=== PATIENT | male | born 1955 | race Hispanic/Latino ===

== ENCOUNTER 2016-12-21 06:41 | Day surgery (SDC) | payer OTHER ==
[2016-12-19 10:21] VITALS: BMI 34.1
[2016-12-21] MEDS ORDERED: Lidocaine 1% Inj (20ml) ONE (07:23)
[2016-12-21] MEDS ORDERED: ceFAZolin IV 1 gm in Dextrose 1 GM/50 ML BAG IVPB ONE (07:23)
[2016-12-21] MEDS ORDERED: Dexamethasone 4 mg/1 ml ONE (07:24)
[2016-12-21] MEDS ORDERED: Propofol 10 mg/ml Inj (20 ML) ONE (07:24)
[2016-12-21] MEDS ORDERED: Phenylephrine 10 mg/ml Inj ONE (07:24)
[2016-12-21] MEDS ORDERED: Lidocaine 2% w Epi 1:100,000 Inj IJ ONE (07:24)
[2016-12-21] MEDS ORDERED: Rocuronium 10 mg/ml (5 ml) ONE (07:24)
[2016-12-21] MEDS ORDERED: Succinylcholine 200 mg/10 ml Inj IV ONE (07:24)
[2016-12-21] MEDS ORDERED: Lidocaine 4% (Laryng-O-Jet) Kit MM ONE (07:24)
--- NOTE | 2016-12-21 07:28 | CP.SDSHP ---
Same Day Surgery H & P - History Proposed Procedure: Left knee arthroscopy, possible partial meniscectomy Pre-Op Diagnosis: Left knee medial and possible lateral meniscal tears - Previous Medical/Surgical History Cardiac: Hypertension Endocrine/Metabolic: Diabetes Previous Surgical History: cardiac stents - Allergies Allergies: Allergies Penicillins Allergy (Mild, Verified 11/19/16 13:09) RASH - Current Medications Current Medications: plavix discontinued 2 months ago aspirin held 5 days - Physical Exam Vital Signs: Vital Signs 12/21/16 12/21/16 07:09 07:12 Temperature 98.4 F Pulse Rate 85 85 Respiratory 20 Rate Blood Pressure 177/97 H O2 Sat by Pulse 98 Oximetry Mental Status: Alert & Oriented x3 Heart: WNL Lungs: WNL GI: WNL - {Optional Preform as Required} Ortho: Other (left knee: mild effusion, no erythema, skin intact, calves soft NT neg homans, j+Dp/PT pulses, sensation intact, ttp to med and lat joint lines) Other Pertinent Findings: MRI in system, reviewed - Impression Impression: 61M with left knee meniscal tears, LFC cartilage defect for arthroscopy. [employer] patient report reviewed, T#3 rx #14 11/29. Patient counseled on the risks of addiction, physical or psychological dependence, and overdose associated with opioid drugs and the danger of taking opioid drugs with alcohol and other central nervous system depressants, and cautioned patient on storage and disposal Pt. Evaluated Today:Candidate for Anesthesia & Procedure: Yes - Date & Time Date: 12/21/16 Time: 07:29 Short Stay Discharge - Short Stay Discharge Admitting Diagnosis/Reason for Visit: S83.204A Disposition: HOME/ ROUTINE Referrals: Nella Garcia MD [Primary Care Provider] - Past Patient History - Infectious Disease Hx of Infectious Diseases: None - Past Medical History & Family History Past Medical History?: Yes - Past Social History Smoking Status: Former Smoker - CARDIAC Hx Cardiac Disorders: Yes Hx Heart Attack: Yes (8 YRS AGO) Hx Hypertension: Yes - PULMONARY Hx Respiratory Disorders: No - NEUROLOGICAL Hx Neurological Disorder: No - HEENT Hx HEENT Problems: No - RENAL Hx Chronic Kidney Disease: Yes Hx Kidney Stones: Yes (LEFT) - ENDOCRINE/METABOLIC Hx Endocrine Disorders: Yes Hx Diabetes Mellitus Type 2: Yes - HEMATOLOGICAL/ONCOLOGICAL Hx Blood Disorders: No - INTEGUMENTARY Hx Dermatological Problems: No - MUSCULOSKELETAL/RHEUMATOLOGICAL Hx Musculoskeletal Disorders: No - GASTROINTESTINAL Hx Gastrointestinal Disorders: No - GENITOURINARY/GYNECOLOGICAL Hx Genitourinary Disorders: No - PSYCHIATRIC Hx Psychophysiologic Disorder: No - SURGICAL HISTORY Hx Surgeries: Yes Hx Angioplasty: Yes Hx Cardiac Catheterization: Yes Hx Tonsillectomy: Yes - ANESTHESIA Hx Anesthesia: Yes Hx Anesthesia Reactions: No Hx Malignant Hyperthermia: No Has any member of the family had a problem w/ anesthesia?: No
[2016-12-21] MEDS ORDERED: MethylPREDNISolone Depo 40 mg/ml Inj ONE (07:36)
[2016-12-21] MEDS ORDERED: Bupivacaine 0.5% Inj(30mL) ONE (07:36)
--- NOTE | 2016-12-21 07:38 | CP.SDSHP ---
Same Day Surgery H & P - Allergies Allergies: Allergies Penicillins Allergy (Mild, Verified 11/19/16 13:09) RASH - Physical Exam Vital Signs: Vital Signs 12/21/16 12/21/16 07:09 07:12 Temperature 98.4 F Pulse Rate 85 85 Respiratory 20 Rate Blood Pressure 177/97 H O2 Sat by Pulse 98 Oximetry Short Stay Discharge - Short Stay Discharge Admitting Diagnosis/Reason for Visit: S83.204A Disposition: HOME/ ROUTINE Referrals: Nella Garcia MD [Primary Care Provider] - Past Patient History - Infectious Disease Hx of Infectious Diseases: None - Past Medical History & Family History Past Medical History?: Yes - Past Social History Smoking Status: Former Smoker - CARDIAC Hx Cardiac Disorders: Yes Hx Heart Attack: Yes (8 YRS AGO) Hx Hypertension: Yes - PULMONARY Hx Respiratory Disorders: No - NEUROLOGICAL Hx Neurological Disorder: No - HEENT Hx HEENT Problems: No - RENAL Hx Chronic Kidney Disease: Yes Hx Kidney Stones: Yes (LEFT) - ENDOCRINE/METABOLIC Hx Endocrine Disorders: Yes Hx Diabetes Mellitus Type 2: Yes - HEMATOLOGICAL/ONCOLOGICAL Hx Blood Disorders: No - INTEGUMENTARY Hx Dermatological Problems: No - MUSCULOSKELETAL/RHEUMATOLOGICAL Hx Musculoskeletal Disorders: No - GASTROINTESTINAL Hx Gastrointestinal Disorders: No - GENITOURINARY/GYNECOLOGICAL Hx Genitourinary Disorders: No - PSYCHIATRIC Hx Psychophysiologic Disorder: No - SURGICAL HISTORY Hx Surgeries: Yes Hx Angioplasty: Yes Hx Cardiac Catheterization: Yes Hx Tonsillectomy: Yes - ANESTHESIA Hx Anesthesia: Yes Hx Anesthesia Reactions: No Hx Malignant Hyperthermia: No Has any member of the family had a problem w/ anesthesia?: No
[2016-12-21] MEDS ORDERED: Lactated Ringer's 1,000 ML IV ONE (08:05)
[2016-12-21] MEDS ORDERED: Midazolam 2 MG/2 ML VIAL ONE (08:06)
[2016-12-21] MEDS ORDERED: Desflurane Inhalation Anesthetic Liq (240 ml) ONE (08:34)
[2016-12-21] MEDS ORDERED: ePHEDrine 50 mg/ml Inj ONE (08:41)
[2016-12-21] MEDS ORDERED: Lidocaine 1% Inj (20ml) IJ ONE (08:58)
[2016-12-21] MEDS ORDERED: Morphine 1 mg/ml preservative-free Inj(Duramorph) ONE (09:18)
[2016-12-21] MEDS ORDERED: Neostigmine Methylsulfate 3mg/3ml Syringe IV ONE (09:20)
[2016-12-21] MEDS ORDERED: Neostigmine Methylsulfate 2 MG/2 ML ML IV ONE (09:20)
[2016-12-21] MEDS ORDERED: Oxycodone/Acetaminophen 5/325 mg Tab PO PRN (09:29)
[2016-12-21] MEDS ORDERED: Metoprolol 1 mg/ml Inj IVP ONE (09:30)
[2016-12-21] MEDS ORDERED: Bupivacaine 0.5% 50 ML IJ ONE (09:35)
[2016-12-21] MEDS ORDERED: MethylPREDNISolone Depo 40 mg/ml Inj IM ONE (09:35)
[2016-12-21] MEDS ORDERED: Morphine 1 mg/ml preservative-free Inj(Duramorph) IM ONE (09:35)
--- NOTE | 2016-12-21 09:36 | PCM.SURG1 ---
Surgeon's Initial Post Op Note - Surgeon's Notes Surgeon: Roberto Carlos Marks MD Nonprofit Financial Controller: Russ Hager PA-c Type of Anesthesia: General Endo Anesthesia Administered By: Dr. Roberto Pre-Operative Diagnosis: Left knee medial possible lateral meniscal tears Operative Findings: tourniquet: @350mmHg Post-Operative Diagnosis: same Operation Performed: 1. Left knee arthroscopy. 2. Arthroscopic partial medial and lateral meniscectomies. 3. intraarticular injection Specimen/Specimens Removed: none Blood Products Given: N/A Drains Used: No Drains Post-Op Condition: Fair
[2016-12-21] MEDS ORDERED: Lactated Ringer's 500 ML IV ONE (09:47)
[2016-12-21] MEDS ORDERED: HYDROmorphone 0.5 mg/0.5 ml ISec IVP PRN (09:56)
[2016-12-21] MEDS ORDERED: Lactated Ringer's 1,000 ML IV SCH (10:00)
[2016-12-21 10:23] VITALS: RESP 20
[2016-12-21 11:07] VITALS: TEMP 97.5
[2016-12-21 12:09] VITALS: BP 160/90; PULSE 82; O2SAT 97
--- NOTE | 2016-12-22 13:11 | OP ---
PROCEDURE DATE: 12/21/2016 PREOPERATIVE DIAGNOSES: Internal derangement of the left knee, osteoarthritis of the left knee. POSTOPERATIVE DIAGNOSES: Tricompartmental synovitis, complex tear medial meniscus, tear lateral meniscus. PROCEDURES: 1. Surgical arthroscopy, partial tricompartmental synovectomy. 2. Surgical arthroscopy, partial medial and lateral meniscectomy. 3. Surgical arthroscopy. 4. Intra-articular injection. SURGEON: Db Marks MD. CORPORATE REPRESENTATIVE: April Oden PA-C. TYPE OF ANESTHESIA: General endotracheal anesthesia. ANESTHESIA ADMINISTERED BY: Basilio Roberto MD. COMPLICATIONS: None. DRAINS: None. OPERATIVE INDICATIONS: Anastacio Dorantes is a 61-year-old gentleman who is employed by [employer], who presents with severe pain and restricted range of motion of the left knee. The patient has failed conservative management consisting of anti-inflammatory medication, activity modification. 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 Possibility of later arthroplasty at some point was discussed down the line. Pros, cons, risks, and benefits of arthroscopic surgery of the left knee are discussed. Possibility of stiffness, mechanical failure, infection, thromboembolic disease discussed. OPERATIVE PROCEDURE: After having obtained informed consent, after thoroughly discussing the pros, cons, risks and benefits of the surgical approach, the possibility of mechanical failure, infection, thromboembolic disease, secondary or tertiary surgery is discussed. Possibility of knee stiffness is discussed. The patient can no longer withstand the discomfort. After having obtained informed consent, after having identified side, site and procedure and critical pause/time-out, after the satisfactory induction of the anesthetic, the left lower extremity is prepped and free draped in usual fashion for lower extremity surgery. The tourniquet had been applied, but it is not yet inflated. The knee ramires had been employed. After sterilely prepping and draping, after exsanguinating the limb using a 6-inch Esmarch bandage, the tourniquet, which had been applied, is inflated to 350 mmHg. The joint is insufflated with 10 mL of 1% lidocaine without epinephrine. Using #11 blade, followed by spreading, followed by introduction of the trocar, the arthroscope is introduced. Examination of the joint commenced. There was found to be a rather irritative and inflammatory synovitis. At a point anteromedially, triangulation is accomplished using #18 gauge spinal needle, followed by #11 blade, followed by spreading, followed by introduction of the blunt trocar. With the arthroscope anterolaterally and with the surgeon exerting a gentle valgus stress so as not to injure the medial collateral ligament, a careful partial tricompartmental synovectomy is accomplished, both to improve visualization and to ablate irritative tissue. With the arthroscope anterolaterally, a careful partial tricompartmental synovectomy is completed. Bleeding points controlled with the arthroscopic wand. This having been accomplished, please refer to the video photographs, there was found to be a complex tear of the medial meniscus with infolding of the meniscus underneath. This having been accomplished, triangulation is accomplished from an anterocentral portal using #18 gauge spinal needle, followed by #11 blade, followed by spreading. With the arthroscope anterolaterally, with the surgeon exerting a general valgus stress, careful partial tricompartmental synovectomy is completed. With the arthroscope anterolaterally, with the grasper placed anterocentrally, using a combination of the arthroscopic scissor and the arthroscopic shaver, the posterior meniscal fragment medially is removed. It is a rather large fragment. With the arthroscope anterolaterally, with surgeon exerting a general valgus stress using a combination of the arthroscopic shaver, partial medial meniscectomy is completed. The arthroscope was transferred anteromedially. Using the left biting basket punch and the upbiting basket punch, a partial medial meniscectomy is completed. The inner free edge is smoothed using the ArthroCare wand. This having been accomplished, partial medial meniscectomy is accomplished. The inner free edge is smoothed using the ArthroCare wand. Careful partial tricompartmental synovectomy is completed using the arthroscopic shaver and the arthroscopic wand. With the knee in figure 4 position, the inner aspect of the lateral meniscus is identified using a combination of the straight biting basket forceps and the side biting basket forceps. A partial lateral meniscectomy is accomplished using a combination of the straight biting basket forceps and the side biting basket forceps. With the arthroscope anterolaterally, again using a combination of the straight biting basket and side biting basket forceps, a partial lateral meniscectomy is accomplished. The inner free edge is smoothed using the AudioCompass SERFAS wand. With the arthroscope anterolaterally, the inner free edge of the lateral meniscus is smoothed using again the Abdias SERFAS wand. Partial tricompartmental synovectomy is completed. Anterior cruciate ligament is found to be intact. There is evidence of some chondral damage and arthritic change, which is carefully debrided. The wound is thoroughly irrigated. Portals were closed with interrupted Vicryl and nylon. Intra-articular injection is offered. Franklin Sethi compression dressing and knee immobilizer is applied. Db Marks MD
== END 2016-12-21 12:25 | disposition home or self-care (01) ==
LOC: H.OPSURG 06:41
PROVIDERS: ATTEND Orthopaedic Surgery
DX: M23.8X2 Other internal derangements of left knee (principal); G47.33 Obstructive sleep apnea (adult) (pediatric); I25.10 Atherosclerotic heart disease of native coronary artery without angina pectoris; E11.9 Type 2 diabetes mellitus without complications; I10 Essential (primary) hypertension; M19.90 Unspecified osteoarthritis, unspecified site
CPT/HCPCS: 20610; 29876; 29880; 82948; 88305; 97161; G8978; G8979; G8980; J0171; J0330; J0690; J1030; J1100; J1885; J2001; J2250; J2270; J2370; J2405; J2704; J2710; J2765; J3010; J7030; J7120

== ENCOUNTER 2018-03-21 13:40 | Emergency (ER) | payer OTHER ==
[2018-03-21 13:41] VITALS: BMI 34.1
[2018-03-21 13:49] VITALS: BP 145/77; PULSE 68; RESP 20; TEMP 98.2; O2SAT 98
[2018-03-21 14:08] LABS: BASO # 0.1 K/uL (0.0-0.2); BASO % 1.2 % (0.0-2.0); EOS # 0.1 K/uL (0.0-0.7); EOS % 1.6 % (0.0-4.0); HEMOGLOBIN 14.3 g/dL (12.0-18.0); LYMPH # 1.6 K/uL (1.0-4.3); LYMPH % 25.5 % (20.0-40.0); MEAN CELL VOLUME 90.4 fl (80.0-94.0); MEAN CORPUSCULAR HEMOGLOBIN 29.9 pg (27.0-31.0); MEAN CORPUSCULAR HGB CONC 33.1 g/dL (33.0-37.0); MONO # 0.9 K/uL (0.0-0.8); MONO % 15.1 % (0.0-10.0); NEUT # 3.5 K/uL (1.8-7.0); NEUT % 56.6 % (50.0-75.0); NRBC % 0.2 % (0.0-0.0); RBC 4.77 Mil/uL (4.40-5.90); WHITE BLOOD COUNT 6.2 K/uL (4.8-10.8)
[2018-03-21 14:18] LABS: BLOOD UREA NITROGEN 19 mg/dl (9-20); CALCIUM 9.7 mg/dL (8.4-10.2); GFR NON-AFRICAN AMERICAN > 60
[2018-03-21] MEDS ORDERED: Albuterol-Ipratrop 3 mg / 0.5 (3 ml) UD INH STA (14:18)
[2018-03-21] MEDS ORDERED: Albuterol-Ipratrop 3 mg / 0.5 (3 ml) UD ONE (14:35)
--- NOTE | 2018-03-21 14:51 | ED PDOC ---
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 Patient works in multiple hospitals and aside from at work doesn't know if he has had any flu contact. Patient was evaluated by another doctor who recommended him to come to this ED or a chest x-ray. Patient denies chest pain, nausea, vomiting, diarrhea. Past Medical History Reviewed: Historical Data, Nursing Documentation, Vital Signs Vital Signs: Last Vital Signs Temp 98.2 F 03/21/18 13:44 Pulse 68 03/21/18 13:44 Resp 20 03/21/18 13:44 BP 145/77 03/21/18 13:44 Pulse Ox 98 03/21/18 13:44 - Medical History PMH: Arthritis, Diabetes, HTN, Hypercholesterolemia, Kidney Stones, Chronic Kidney Disease - Surgical History Surgical History: Coronary Stent, Tonsillectomy Denies: Pacemaker - Family History Family History: States: Unknown Family Hx - Home Medications Home Medications: Ambulatory Orders Medication Instructions Recorded Aspirin [Aspir 81] 81 mg PO DAILY 08/04/11 Clopidogrel [Plavix] 75 mg PO DAILY 08/04/11 Fenofibrate [Tricor] 145 mg PO DAILY 08/04/11 Metoprolol Tartrate [Lopressor] 12.5 mg PO BID 08/04/11 Rosuvastatin Calcium [Crestor] 20 mg PO DAILY 08/04/11 Cholecalciferol (Vitamin D3) 2,000 unit PO DAILY 11/17/16 [Vitamin D3] Glyburide/Metformin HCl 1 tab PO BID 11/17/16 [Glyburide-Metformin 2.5-500 mg] Olmesartan Medoxomil [Benicar] 20 mg PO DAILY 11/17/16 Ketorolac Tromethamine [Toradol] 10 mg PO Q6 PRN #14 tab 11/19/16 MetFORMIN [glucoPHAGE] 500 mg PO TID 11/19/16 Tamsulosin [Flomax] 0.4 mg PO DAILY #4 cap 11/19/16 oxyCODONE/Acetaminophen [Percocet 1 ea PO Q4H PRN #30 tab 12/21/16 5/325 mg Tab] Albuterol HFA [Ventolin HFA 90 2 puff IH [id number] #1 pump 03/21/18 mcg/actuation (8 g)] Oseltamivir Phosphate [Tamiflu] 75 mg PO BID #9 capsule 03/21/18 - Allergies Allergies/Adverse Reactions: Allergies Allergy/AdvReac Type Severity Reaction Status Date / Time Penicillins Allergy Mild RASH Verified 03/21/18 13:43 Review of Systems ROS Statement: Except As Marked, All Systems Reviewed And Found Negative Constitutional: Positive for: Weakness Cardiovascular: Negative for: Chest Pain Respiratory: Positive for: Cough Gastrointestinal: Negative for: Nausea, Vomiting, Diarrhea Physical Exam - Reviewed Nursing Documentation Reviewed: Yes Vital Signs Reviewed: Yes - Physical Exam Appears: Positive for: Well, Non-toxic, No Acute Distress Head Exam: Positive for: ATRAUMATIC, NORMOCEPHALIC Skin: Positive for: Normal Color, Warm, Dry Eye Exam: Positive for: EOMI, Normal appearance, PERRL Neck: Positive for: Normal, Painless ROM Cardiovascular/Chest: Positive for: Regular Rate, Rhythm. Negative for: Murmur Respiratory: Positive for: Crackles, Wheezing (right sided). Negative for: Rhonchi, Stridor Gastrointestinal/Abdominal: Positive for: Normal Exam, Soft. Negative for: Tenderness Back: Positive for: Normal Inspection Extremity: Positive for: Normal ROM. Negative for: Pedal Edema, Deformity Neurologic/Psych: Positive for: Alert, Oriented. Negative for: Motor/Sensory Deficits Medical Decision Making Medical Decision Making: Time: 13:46 Initial Impression: Workup fo influenza vs. other URI. Duonebs for symptomatic relief. Reassess patient Initial Plan: * BMP * CBC w/ diff * CXR * Duoneb 3 ml * Influenza A B 14:46 Patient is flu positive. Tamiflu given. Labs are otherwise within normal limits. Received duonebs now. Most likely will discharge home. 15:10 Patient with improvement of symptoms, tolerated Tamiflu. Patient is medically stable for discharge home with prescription for Albuterol and Tamiflu. Note given and return parameters discussed. Scribe Attestation: Documented by Deep Monroy acting as a scribe for Dinorah Porter MD. Provider Scribe Attestation: All medical record entries made by the Scribe were at my direction and personally dictated by me. I have reviewed the chart and agree that the record accurately reflects my personal performance of the history, physical exam, medical decision making, and the department course for this patient. I have also personally directed, reviewed, and agree with the discharge instructions and disposition. - Laboratory Results Result Diagrams: 03/21/18 12:02 03/21/18 12:02 - ECG O2 Sat by Pulse Oximetry: 98 Disposition - Clinical Impression Clinical Impression: Influenza A - Disposition Disposition: Routine/Home Disposition Time: 15:10 Condition: STABLE Additional Instructions: Take Tamiflu twice per day for a total of 5 days. Follow up with primary doctor in one week. Stay home for rest for an additional 24 hours after symptoms resolve. Return to the emergency department if symptoms worsen or if you develop weakness, chest pain, difficulty breathing or other new symptoms. Prescriptions: Albuterol HFA [Ventolin HFA 90 mcg/actuation (8 g)] 2 puff IH [id number] #1 pump Oseltamivir Phosphate [Tamiflu] 75 mg PO BID #9 capsule Instructions: Flu, Adult (DC) Forms: [employer] (Paraguayan), [facility] ED School/Work Excuse Print Language: DANISH
--- NOTE | 2018-03-21 15:23 | RAD ---
Date of service: 03/21/2018 HISTORY: cough COMPARISON: Chest radiograph dated 12/19/2016. TECHNIQUE: Chest PA and lateral FINDINGS: LUNGS: No active pulmonary disease. PLEURA: No significant pleural effusion identified. No pneumothorax apparent. CARDIOVASCULAR: Aortic atherosclerotic calcifications. Cardiomediastinal silhouette within normal limits. OSSEOUS STRUCTURES: Unchanged. VISUALIZED UPPER ABDOMEN: Normal. OTHER FINDINGS: Neck region surgical clips redemonstrated.. IMPRESSION: No active disease.
--- NOTE | 2018-03-27 13:40 | CARD ---
APPROVED REPORT Date of service: 03/21/2018 EKG Measurement Heart [id number] <Conclusion> Sinus bradycardia Otherwise normal ECG
== END 2018-03-21 15:27 | disposition home or self-care (01) ==
LOC: H.ER 13:40
DX: J09.X2 Influenza due to identified novel influenza A virus with other respiratory manifestations (principal)